=== PATIENT | female | born 1950 | race Caucasian/White ===

== ENCOUNTER → 2017-04-06 | Day surgery (SDC) | payer MEDICARE, BC ==
[~2017-04-06] MED LIST: Lactated Ringers 500 ML IV SCH; Propofol 200 MG/20 ML SDV IV ONE
--- NOTE | 2017-04-06 12:35 | OR ---
DATE OF OPERATION: 04/06/2017 PREOPERATIVE DIAGNOSIS: SCREENING COLONOSCOPY. POSTOPERATIVE DIAGNOSIS: SCREENING COLONOSCOPY. SURGEON: Carlos A Vaughn MD PROCEDURE: FULL-LENGTH COLONOSCOPY. ANESTHESIA: ECG TECHNICIAN due to elevated BMI and hypertension. COMPLICATIONS: None. SPECIMEN: None. FINDINGS: Normal full length colonoscopy. RECOMMENDATIONS: Follow up colonoscopy every 10 years. INDICATIONS: The patient was in for routine physical. She is due for a screening colonoscopy. DESCRIPTION OF PROCEDURE: The patient was prepped and draped, placed in the left lateral decubitus position. A lubricated Olympus colonoscope was inserted and safely and easily advanced to the cecum. Direct visualization of the ileocecal valve and appendiceal orifice was accomplished. The bowel prep was adequate. Upon withdrawal of the scope throughout the entire length of the colon I found no signs of any polyps, mass, ulceration, or bleeding sites. No vascular abnormalities or signs of colitis. There were no significant diverticula. The rectal vault was unremarkable. Retroflexion of scope in the rectum showed no anal lesions. Air was suctioned. Scope was removed without complication. RENATO/DEMARIO /[id number]
== END ==
LOC: CC.SDS 08:32
PROVIDERS: ATTEND Family Medicine
DX: Z12.11 Encounter for screening for malignant neoplasm of colon (principal); I10 Essential (primary) hypertension; Z88.0 Allergy status to penicillin; Z90.710 Acquired absence of both cervix and uterus; Z90.722 Acquired absence of ovaries, bilateral; Z90.89 Acquired absence of other organs; G47.33 Obstructive sleep apnea (adult) (pediatric); E78.5 Hyperlipidemia, unspecified; F32.9 Major depressive disorder, single episode, unspecified; Z79.82 Long term (current) use of aspirin; Z79.899 Other long term (current) drug therapy
CPT/HCPCS: 00810; 45378; J2704; J7120